=== PATIENT | female | born 1960 | race Two or more races ===

== ENCOUNTER 2024-10-12 09:00 | Outpatient (RCR) | payer MEDICAID, SELFPAY ==
--- NOTE | 2024-10-05 08:38 | PTNOTE_ITS ---
PT OP Initial Eval Patient Information Outpatient Physical Therapy Treatment Date: 10/05/24 Visit Reasons: low back pain Medical Diagnosis: M54.16 Treatment Dx #1: LBP with radiculopathy Start of Care: 10/05/24 Date of Onset: 5 yrs ago Smoking Status Smoking Status: Never smoker Initial Assessment Subjective: Pt is 64 yr old female who reports LBP and L LE pain down to ankle which comes and goes attributed to scoliosis. Increased back pain with walking about 100' and she uses a 4WW. Increased pain with stairs, bending, lifting and twisting. PMH: high cholesterol, x2, gall bladder, HTN Imaging: with provider Pt goal: to get rid of the LBP Objective: Trunk ArOM: ? B SB 20% of normal with pain to L ? Extension: 10% with pain around L4-5, L5-S1 ? Flexion: 10% of normal from floor with LBP ? B rotation: 60% with pain to R ? Gait: dec speed with 4WW ? TTP: moderate paraspinals L5-S1 ? Neuro: L SLR: positive Assessment: Pt presents with trunk flexion sensitivity and overlying myofascial pain ? and TTP around L5-S1 consistent with ? lower lumbar DDD with radiculopathy. Pt requires skilled therapy in order to decrease ? pain and improve sitting/standing tolerance and has poor/fair rehab potential. Short Term and [employer] Goals 1. Ind with HEP ? 2. Improved sitting/standing tolerance to 30 minutes with <=4/10 LBP ? 3. Decreased lower paraspinal TTP from mod to min 4. Improved HH chore tolerance to at least 30 minutes with <=3/10 LBP and no ?increase in LE ssx ? Treatment Plan ? 1. Manual therapy ? 2. Therex ? 3. Modalities as indicated, moist heat, ice, estim, mechanical traction Frequency and Duration: 1-2x a week for 4 weeks plus evaluation Certification Dates: 10/05/24 to 01/01/25 Procedure Charges OP PT Eval Mod Complex 30 minutes: Yes
--- NOTE | 2024-10-12 09:38 | PT.ODAYNRPT ---
PT Outpatient Daily Note OP Daily Note Outpatient Physical Therapy Treatment Date: 10/12/24 Visit Reasons: low back pain Subjective: Pt reports LBP and mild L LE symptoms today. Objective: Please see flow sheet for ther ex list. Assessment: Pt reported comfort post sidelying QL stretch, no other complaints. Plan: Continue with POC. Length of Time (minutes) of Treatment: 30 Minutes Procedure Charges Therapeutic Exercise 30 minutes: Yes
== END 2024-10-15 23:59 | disposition home or self-care (01) ==
LOC: CPTX 09:00
PROVIDERS: PCP Nurse Practitioner; Referring Provider Physical Medicine & Rehabilitation Pain Medicine; Visit Provider Physical Medicine & Rehabilitation Pain Medicine
DX: M54.16 Radiculopathy, lumbar region (principal); M41.9 Scoliosis, unspecified; I10 Essential (primary) hypertension
CPT/HCPCS: 97110; 97162

== ENCOUNTER 2024-11-09 09:00 | Outpatient (RCR) | payer MEDICAID, SELFPAY ==
--- NOTE | 2024-10-19 10:06 | PT.ODAYNRPT ---
PT Outpatient Daily Note OP Daily Note Outpatient Physical Therapy Treatment Date: 10/19/24 Visit Reasons: Low back pain Subjective: Pt reports low back pain is doing ok today, has aqua therapy yesterday. Objective: Please see flow sheet for ther ex list. Assessment: Added interventions completed with good tolerance. Plan: Continue with pOC. Length of Time (minutes) of Treatment: 30 Minutes Procedure Charges Therapeutic Exercise 30 minutes: Yes
--- NOTE | 2024-10-26 09:36 | PT.ODAYNRPT ---
PT Outpatient Daily Note OP Daily Note Outpatient Physical Therapy Treatment Date: 10/26/24 Visit Reasons: Low back pain Subjective: Pt reports LBP is slowly progressing. Pt shared she also does aquatherapy. Objective: Please see flow sheet for ther ex list. Assessment: Progression of interventions completed with no complaints of pain indicating progress. Plan: Continue with pOC. Length of Time (minutes) of Treatment: 30 Minutes Procedure Charges Therapeutic Exercise 30 minutes: Yes
--- NOTE | 2024-11-02 09:12 | PT.ODAYNRPT ---
PT Outpatient Daily Note OP Daily Note Outpatient Physical Therapy Treatment Date: 11/02/24 Visit Reasons: Low back pain Subjective: Pt reports LBP is ok, continues to do aqua therapy also. Objective: Please see flow sheet for ther ex list. Assessment: Decrease c/o fatigue during interventions indicating progress. Plan: Continue with POC. Progress as tolerated. Length of Time (minutes) of Treatment: 30 Minutes Procedure Charges Therapeutic Exercise 30 minutes: Yes
--- NOTE | 2024-11-09 09:33 | PT.ODAYNRPT ---
PT Outpatient Daily Note OP Daily Note Outpatient Physical Therapy Treatment Date: 11/09/24 Visit Reasons: Low back pain Subjective: Pt says her back isn't hurting today Objective: See F/S for therex Assessment: Low tissue irritability with therex Plan: Continue per POC Length of Time (minutes) of Treatment: 30 Minutes Procedure Charges Therapeutic Exercise 30 minutes: Yes
== END 2024-11-15 23:59 | disposition home or self-care (01) ==
LOC: CPTX 09:00
PROVIDERS: PCP Physical Medicine & Rehabilitation Pain Medicine; Referring Provider Physical Medicine & Rehabilitation Pain Medicine; Visit Provider Physical Medicine & Rehabilitation Pain Medicine
DX: M54.16 Radiculopathy, lumbar region (principal); I10 Essential (primary) hypertension
CPT/HCPCS: 97110

== ENCOUNTER 2024-11-30 09:00 | Outpatient (RCR) | payer MEDICAID, SELFPAY ==
--- NOTE | 2024-11-16 11:23 | PT.ODAYNRPT ---
PT Outpatient Daily Note OP Daily Note Outpatient Physical Therapy Treatment Date: 11/16/24 Visit Reasons: LOW BACK PAIN Subjective: Pt says her back isn't hurting very much today but it was stiff in the morning Objective: See F/S for therex Assessment: Low tissue irritability with therex Plan: Continue per POC Length of Time (minutes) of Treatment: 30 Minutes Procedure Charges Therapeutic Exercise 30 minutes: Yes
--- NOTE | 2024-11-23 09:57 | PT.ODAYNRPT ---
PT Outpatient Daily Note OP Daily Note Outpatient Physical Therapy Treatment Date: 11/23/24 Visit Reasons: LOW BACK PAIN Subjective: Pt reports back is doing better, feels like PT is helping. Objective: Please see flow sheet for ther ex list. Assessment: Aded step up to work towards pt being able to manage steps and curbs out in community. Plan: Assess for note, pt has one visit left. Length of Time (minutes) of Treatment: 30 Minutes Procedure Charges Therapeutic Exercise 30 minutes: Yes
--- NOTE | 2024-11-30 09:58 | PT.ODS1RPT ---
PT OP Progress/Discharge Note Date of Service: 11/30/24 Progress Note/DC Note Progress Note/Discharge Note: Progress Note Patient Information Visit Reasons: LOW BACK PAIN Service Continue Service or Discharge: Continue Service Status Subjective: Pt says therapy helps her back feel better and she wants to continue with more visits. Objective: TTP of lumbar paraspinals min/moderate Trunk AROM: FB: 20% of normal EXtension: 20% with LBP Gait: uses 4WW with lateral sway and decreased gait speed Assessment: Pt has attended 8/8 authorized visits with fair progress with therapy goals. Pt has less LBP and temporary relief after therapy visits and possibly less TTP of lumbar paraspinals. Plan: Request additional authorized visits x8 to meet goals. In order to continue therapy we will need MD signature on this progress note or another referral since the original is for 8 visits. Extend POC dates from 01/01 to 02/01/25. Procedure Charges Therapeutic Exercise 30 minutes: Yes
== END 2024-12-15 23:59 | disposition home or self-care (01) ==
LOC: CPTX 09:00
PROVIDERS: PCP Physical Medicine & Rehabilitation Pain Medicine; Referring Provider Physical Medicine & Rehabilitation Pain Medicine; Visit Provider Physical Medicine & Rehabilitation Pain Medicine
DX: M54.16 Radiculopathy, lumbar region (principal); I10 Essential (primary) hypertension
CPT/HCPCS: 97110

== ENCOUNTER 2025-01-11 09:00 | Outpatient (RCR) | payer MEDICAID, SELFPAY ==
--- NOTE | 2024-12-21 10:17 | PT.ODAYNRPT ---
PT Outpatient Daily Note OP Daily Note Outpatient Physical Therapy Treatment Date: 12/21/24 Visit Reasons: Lumbar region Subjective: Ambulating with 4WW and reports she is having an injection in the knee soon. Objective: See F/S for therex Assessment: Pt can do light therex with low tissue irritability and has recently been going up/down a 2 step. Plan: Continue with Length of Time (minutes) of Treatment: 30 Minutes Procedure Charges Therapeutic Exercise 30 minutes: Yes
--- NOTE | 2025-01-04 11:30 | PT.ODAYNRPT ---
PT Outpatient Daily Note OP Daily Note Outpatient Physical Therapy Treatment Date: 01/04/25 Visit Reasons: Lumbar region Subjective: Ambulating with 4WW and reports she had an injection in the knee and it's feeling better Objective: See F/S for therex Assessment: Pt can do light therex with low tissue irritability and has recently been going up/down a 2 step. Plan: Continue per POC Length of Time (minutes) of Treatment: 30 Minutes Procedure Charges Therapeutic Exercise 30 minutes: Yes
--- NOTE | 2025-01-11 09:59 | PT.ODAYNRPT ---
PT Outpatient Daily Note OP Daily Note Outpatient Physical Therapy Treatment Date: 01/11/25 Visit Reasons: Lumbar region Subjective: Ambulating with 4WW and reports she had an injection in the knee and it's feeling better Objective: See F/S for therex Assessment: Pt can do light therex with low tissue irritability and has recently been going up/down a 2 step. Plan: Continue per POC Length of Time (minutes) of Treatment: 30 Minutes Procedure Charges Therapeutic Exercise 30 minutes: Yes
== END 2025-01-15 23:59 | disposition home or self-care (01) ==
LOC: CPTX 09:00
PROVIDERS: PCP Physical Medicine & Rehabilitation Pain Medicine; Referring Provider Physical Medicine & Rehabilitation Pain Medicine; Visit Provider Physical Medicine & Rehabilitation Pain Medicine
DX: M54.16 Radiculopathy, lumbar region (principal); I10 Essential (primary) hypertension
CPT/HCPCS: 97110

== ENCOUNTER 2025-02-01 09:30 | Outpatient (RCR) | payer MEDICAID, SELFPAY ==
--- NOTE | 2025-01-18 18:07 | PT.ODAYNRPT ---
PT Outpatient Daily Note OP Daily Note Outpatient Physical Therapy Treatment Date: 01/18/25 Visit Reasons: back pain Subjective: Pt says her back isn't hurting very much today but it was stiff in the morning Objective: See F/S for therex Assessment: Low tissue irritability with therex Plan: Continue per POC Length of Time (minutes) of Treatment: 30 Minutes Procedure Charges Therapeutic Exercise 30 minutes: Yes
--- NOTE | 2025-01-25 09:58 | PT.ODAYNRPT ---
PT Outpatient Daily Note OP Daily Note Outpatient Physical Therapy Treatment Date: 01/25/25 Visit Reasons: back pain Subjective: Pt says her back isn't hurting very much today but it was stiff in the morning Objective: See F/S for therex Assessment: Low tissue irritability with therex Plan: Continue per POC Length of Time (minutes) of Treatment: 30 Minutes Procedure Charges Therapeutic Exercise 30 minutes: Yes
--- NOTE | 2025-02-01 11:12 | PT.ODAYNRPT ---
PT Outpatient Daily Note OP Daily Note Outpatient Physical Therapy Treatment Date: 02/01/25 Visit Reasons: back pain Subjective: Pt reports she feels better the days she comes to PT. Pt also does aqua therapy 3x a week. Objective: Please see flow sheet for ther ex list. Assessment: Pt demonstrates poor endurance with closed chain interventions, requires seated rest breaks to accommodate poor endurance. Plan: Continue with pOC. Length of Time (minutes) of Treatment: 30 Minutes Procedure Charges Therapeutic Exercise 30 minutes: Yes
== END 2025-02-14 23:59 | disposition home or self-care (01) ==
LOC: CPTX 09:30
PROVIDERS: PCP Physical Medicine & Rehabilitation Pain Medicine; Referring Provider Physical Medicine & Rehabilitation Pain Medicine; Visit Provider Physical Medicine & Rehabilitation Pain Medicine
DX: M54.16 Radiculopathy, lumbar region (principal); I10 Essential (primary) hypertension
CPT/HCPCS: 97110

== ENCOUNTER 2025-02-22 09:30 | Outpatient (RCR) | payer MEDICAID, SELFPAY ==
--- NOTE | 2025-02-15 11:08 | PT.ODAYNRPT ---
PT Outpatient Daily Note OP Daily Note Outpatient Physical Therapy Treatment Date: 02/15/25 Visit Reasons: Back pain Subjective: pt reports PT is helping and continues to do aqua therapy. Objective: Please see flow sheet for ther ex list. Assessment: Pt presents in clinic with decrease pain indicating progress. Plan: Continue with pOC. Length of Time (minutes) of Treatment: 30 Minutes Procedure Charges Therapeutic Exercise 30 minutes: Yes
--- NOTE | 2025-02-22 12:11 | PT.ODS1RPT ---
PT OP Progress/Discharge Note Date of Service: 02/22/25 Progress Note/DC Note Progress Note/Discharge Note: DC Note Patient Information Visit Reasons: Back pain Service Continue Service or Discharge: Discharge Discharge Date: 02/22/25 Status Subjective: Pt says therapy helps her back feel better. Objective: TTP of lumbar paraspinals min/moderate Trunk AROM: FB: 20% of normal EXtension: 20% with LBP Gait: uses 4WW with lateral sway and decreased gait speed Assessment: Pt has attended 8/8 authorized visits with fair progress with therapy goals. Pt has less LBP and temporary relief after therapy visits and possibly less TTP of lumbar paraspinals. Plan: Request additional authorized visits x8 to meet goals. In order to continue therapy we will need MD signature on this progress note or another referral since the original is for 8 visits. Extend POC dates from 01/01 to 02/01/25. Procedure Charges Therapeutic Exercise 30 minutes: Yes
--- NOTE | 2025-02-22 18:14 | PT.ODS1RPT ---
PT OP Progress/Discharge Note Date of Service: 02/22/25 Progress Note/DC Note Progress Note/Discharge Note: DC Note Patient Information Visit Reasons: Back pain Service Continue Service or Discharge: Discharge Discharge Date: 02/22/25 Status Subjective: Pt reports less LBP since starting therapy and she can sit/stand for 30 mins with 5/10 LBP and can do HH chores for 30 mins with 8/10 pain. Pt is doing aqua therapy. Objective: See F/S for therex TTP: min of lower paraspinals Assessment: Pt has attended 16/16 sessions with good progress to meet therapy goals. Pt is independent with HEP and has improved sitting and standing and HH chore tolerance to 30 mins and decreased lower paraspinal TTP to min to meet those goals. LBP is chronic and she is doing HEP to help manage. Plan: D/C with HEP Procedure Charges Therapeutic Exercise 30 minutes: Yes
== END 2025-03-17 23:59 | disposition home or self-care (01) ==
LOC: CPTX 09:30
PROVIDERS: PCP Physical Medicine & Rehabilitation Pain Medicine; Referring Provider Physical Medicine & Rehabilitation Pain Medicine; Visit Provider Physical Medicine & Rehabilitation Pain Medicine
DX: M54.16 Radiculopathy, lumbar region (principal)
CPT/HCPCS: 97110